=== PATIENT | female | born 1965 | race Caucasian/White ===

== ENCOUNTER 2016-12-01 14:00 | Emergency (ER) | payer OTHER ==
[~2016-12-01] VITALS: Ht 160 cm; Wt 84.6 kg
[~2016-12-01 14:00] MED LIST: LEXA10TA PO
[2016-12-01 14:35] VITALS: BP 156/96; PULSE 88; RESP 16; TEMP 99.5; O2SAT 99
[2016-12-01] MEDS ORDERED: SODIUM CHLOR 0.9% 1000 ML INJ 1,000 ML IV SCH (15:36)
--- NOTE | 2016-12-01 15:42 | PD ---
HPI Chief Complaint: Abdominal Pain Time Seen by Provider: 15:31 Travel History International Travel<30 days: No Contact w/Intl Traveler<30days: No Traveled to known affect area: No History of Present Illness HPI 50-year-old female complains of abdominal pain with nausea vomiting diarrhea. Patient states the symptoms started last night. Patient has fever, coughing congestion body ache for the past 5 days. Patient states that the abdominal pain started last night. Patient denies any earache sore throat. Patient states that the cough is mild dry cough. Patient denies any chest pain or shortness of breath. Patient states that the abdominal pain is sharp intermittent pain mostly localized around the right mid to right low quadrant of the abdomen. Patient denies any pain radiation. On a scale of 1-10 the pain is an 8. PFSH Past Medical History Depression: Yes Cardiovascular Problems: Yes (BORDERLINE) Diminished Hearing: No ?: Not LMP: pre-menapause Past Surgical History Eye Surgery: Yes (left eye as a child) Tonsillectomy: Yes Other Surgery: Yes (right knee) Social History Alcohol Use: Yes (SOCIALLY- wine) Tobacco Use: No (quit 10 yrs ago smoked cigs) Substance Use: No Allergies-Medications (Allergen,Severity, Reaction): Coded Allergies: Contrast Media (Verified Allergy, Severe, ANAPHYLAXIS, 04/11/15) Reported Meds & Prescriptions Reported Meds & Active Scripts Active Reported Lexapro (Escitalopram Oxalate) 10 Mg Tab 10 Mg PO DAILY Review of Systems General / Constitutional: No: Fever Eyes: No: Visual changes HENT: No: Headaches Cardiovascular: No: Chest Pain or Discomfort Respiratory: No: Shortness of Breath Gastrointestinal: Positive: Nausea, Vomiting, Diarrhea, Abdominal Pain Genitourinary: No: Dysuria Musculoskeletal: No: Pain Skin: No Rash Neurologic: No: Weakness Psychiatric: No: Depression Endocrine: No: Polydipsia Hematologic/Lymphatic: No: Easy Bruising Physical Exam Narrative GENERAL: Well-nourished, well-developed patient. SKIN: Warm and dry. HEAD: Normocephalic. EYES: No scleral icterus. No injection or drainage. NECK: Supple, trachea midline. No JVD or lymphadenopathy. CARDIOVASCULAR: Regular rate and rhythm without murmurs, gallops, or rubs. RESPIRATORY: Breath sounds equal bilaterally. No accessory muscle use. GASTROINTESTINAL: Abdomen soft, nondistended. Patient has mild tenderness on palpation right mid to low quadrant of the abdomen. No rebound tenderness. No mass. MUSCULOSKELETAL: No cyanosis, or edema. BACK: Nontender without obvious deformity. No CVA tenderness. Neurologic exam normal. Data Data Last Documented VS Vital Signs Date Time Temp Pulse Resp B/P Pulse Ox O2 Delivery O2 Flow Rate FiO2 12/01/16 14:35 99.5 88 16 156/96 99 Orders Complete Blood Count With Diff (12/01/16 15:36) Comprehensive Metabolic Panel (12/01/16 15:36) Lipase (12/01/16 15:36) Prothrombin Time / Inr (Pt) (12/01/16 15:36) Act Partial Throm Time (Ptt) (12/01/16 15:36) Urinalysis - C+S If Indicated (12/01/16 15:36) Ct Abd/Pel W/O Iv Contrast (12/01/16 15:36) Iv Access Insert/Monitor (12/01/16 15:36) Ecg Monitoring (12/01/16 15:36) Oximetry (12/01/16 15:36) Morphine Inj (Morphine Inj) (12/01/16 15:45) Ondansetron Inj (Zofran Inj) (12/01/16 15:45) Pantoprazole Inj (Protonix Inj) (12/01/16 15:45) Sodium Chlor 0.9% 1000 Ml Inj (Ns 1000 M (12/01/16 15:36) MDM Medical Decision Making Medical Screen Exam Complete: Yes Emergency Medical Condition: Yes Differential Diagnosis Differential diagnosis including gastritis, PUD, pancreatitis, cholecystitis, colitis, UTI, pyelonephritis, nephrolithiasis, appendicitis, ovarian cyst, ovarian torsion. Narrative Course 50-year-old female with right mid to right low quadrant abdominal pain. Patient also has nausea vomiting diarrhea. Normal saline solution 1 25 cc an hour. Morphine 2 mg IV. Zofran 4 mg IV. Glenroy Walters MD Dec 01, 2016 15:42
[2016-12-01] MEDS ORDERED: ONDANSETRON HCL 4 MG/2 ML VIAL IVP ONE (15:45)
[2016-12-01] MEDS ORDERED: PANTOPRAZOLE SODIUM 40 MG VIAL IVP ONE (15:45)
[2016-12-01] MEDS ORDERED: MORPHINE SULFATE 4 MG/ML INJ IV PUSH ONE (15:45)
[2016-12-01] MEDS ORDERED: LEXA10TA PO (16:05)
[2016-12-01 16:08] LABS: AUTOMATED NEUTROPHIL # 2.5 TH/MM3 (1.8-7.7); BASOPHIL % 0.9 % (0.0-2.0); EOSINOPHIL % 0.4 % (0.0-4.0); HEMO FLAGS DIFF FINAL; LYMPH % 30.2 % (9.0-44.0); LYMPHOCYTE # 1.3 TH/MM3 (1.0-4.8); MEAN CELL VOLUME 88.1 FL (80.0-100.0); MEAN CORPUSCULAR HEMOGLOBIN 28.9 PG (27.0-34.0); MEAN CORPUSCULAR HGB CONC 32.8 % (32.0-36.0); MONO % 8.4 % (0.0-8.0); NEUT % 60.1 % (16.0-70.0); PLATELET COUNT 227 TH/MM3 (150-450); RED CELL DISTRIBUTION WIDTH 12.4 % (11.6-17.2); WHITE BLOOD COUNT 4.1 TH/MM3 (4.0-11.0)
[2016-12-01 16:10] LABS: BLOOD, URINE NEG (NEG); GLUCOSE,URINE NEG (NEG); KETONE, URINE TRACE mg/dL (NEG); NITRITE,URINE NEG (NEG)
[2016-12-01 16:16] LABS: CHLORIDE 105 MEQ/L (98-107); POTASSIUM 3.8 MEQ/L (3.5-5.1); SODIUM (NA) 142 MEQ/L (136-145)
[2016-12-01 16:20] LABS: ANION GAP 8 MEQ/L (5-15); BICARBONATE 28.6 MEQ/L (21.0-32.0); BLOOD UREA NITROGEN 10 MG/DL (7-18); PROTHROMBIN TIME - PATIENT 10.7 SEC (9.8-11.6)
[2016-12-01 16:22] LABS: ALT (GPT) 41 U/L (10-53); AST (GOT) 31 U/L (15-37)
[2016-12-01 16:23] LABS: GLOMERULAR FILTRATION RATE 59 ML/MIN (>89)
[2016-12-01 16:24] LABS: TOTAL BILIRUBIN ADULT 0.3 MG/DL (0.2-1.0)
[2016-12-01 16:25] LABS: ALKALINE PHOSPHATASE 87 U/L (45-117)
[2016-12-01 16:28] LABS: COMMENT (UR) CULT NOT INDICATED; CULTURE IF INDICATED CULT NOT INDICATED; RBC, URINE 0-2 /hpf (0-3); SQUAMOUS EPITHELIAL CELL URINE 0-5 /hpf (0-5); URINE COLOR STRAW (YELLW/STRAW); WBC, URINE 0-2 /hpf (0-5)
--- NOTE | 2016-12-01 16:29 | PD ---
Physical Exam Date Seen by Provider: Dec 01, 2016 Time Seen by Provider: 16:27 Narrative The patient is a 50-year-old female was initially evaluated by Dr. Walters. Please refer to the initial history, physical, diagnostic evaluation, treatment modality plan. The patient signed out at [address] of the abdomen and pelvis pending. According to Dr. Walters the patient was experienced nausea, vomiting, diarrhea, right lower quadrant abdominal pain. Data Data Last Documented VS Vital Signs Date Time Temp Pulse Resp B/P Pulse Ox O2 Delivery O2 Flow Rate FiO2 12/01/16 14:35 99.5 88 16 156/96 99 Orders Complete Blood Count With Diff (12/01/16 15:36) Comprehensive Metabolic Panel (12/01/16 15:36) Lipase (12/01/16 15:36) Prothrombin Time / Inr (Pt) (12/01/16 15:36) Act Partial Throm Time (Ptt) (12/01/16 15:36) Urinalysis - C+S If Indicated (12/01/16 15:36) Ct Abd/Pel W/O Iv Contrast (12/01/16 15:36) Iv Access Insert/Monitor (12/01/16 15:36) Ecg Monitoring (12/01/16 15:36) Oximetry (12/01/16 15:36) Morphine Inj (Morphine Inj) (12/01/16 15:45) Ondansetron Inj (Zofran Inj) (12/01/16 15:45) Pantoprazole Inj (Protonix Inj) (12/01/16 15:45) Sodium Chlor 0.9% 1000 Ml Inj (Ns 1000 M (12/01/16 15:36) Labs Laboratory Tests Test 12/01/16 16:00 White Blood Count 4.1 TH/MM3 Red Blood Count 5.10 MIL/MM3 Hemoglobin 14.7 GM/DL Hematocrit 45.0 % Mean Corpuscular Volume 88.1 FL Mean Corpuscular Hemoglobin 28.9 PG Mean Corpuscular Hemoglobin 32.8 % Concent Red Cell Distribution Width 12.4 % Platelet Count 227 TH/MM3 Mean Platelet Volume 7.6 FL Neutrophils (%) (Auto) 60.1 % Lymphocytes (%) (Auto) 30.2 % Monocytes (%) (Auto) 8.4 % Eosinophils (%) (Auto) 0.4 % Basophils (%) (Auto) 0.9 % Neutrophils # (Auto) 2.5 TH/MM3 Lymphocytes # (Auto) 1.3 TH/MM3 Monocytes # (Auto) 0.3 TH/MM3 Eosinophils # (Auto) 0.0 TH/MM3 Basophils # (Auto) 0.0 TH/MM3 CBC Comment DIFF FINAL Differential Comment Prothrombin Time 10.7 SEC Prothromb Time International 1.0 RATIO Ratio Activated Partial 27.0 SEC Thromboplast Time Urine Color STRAW Urine Turbidity CLEAR Urine pH 6.0 Urine Specific Waterproof 1.024 Urine Protein TRACE mg/dL Urine Glucose (UA) NEG mg/dL Urine Ketones TRACE mg/dL Urine Occult Blood NEG Urine Nitrite NEG Urine Bilirubin NEG Urine Leukocyte Esterase NEG Urine RBC 0-2 /hpf Urine WBC 0-2 /hpf Urine Squamous Epithelial 0-5 /hpf Cells Urine Bacteria NONE /hpf Microscopic Urinalysis Comment CULT NOT INDICATED Sodium Level 142 MEQ/L Potassium Level 3.8 MEQ/L Chloride Level 105 MEQ/L Carbon Dioxide Level 28.6 MEQ/L Anion Gap 8 MEQ/L Blood Urea Nitrogen 10 MG/DL Creatinine 1.00 MG/DL Estimat Glomerular Filtration 59 ML/MIN Rate Random Glucose 103 MG/DL Calcium Level 8.2 MG/DL Total Bilirubin 0.3 MG/DL Aspartate Amino Transf 31 U/L (AST/SGOT) Alanine Aminotransferase 41 U/L (ALT/SGPT) Alkaline Phosphatase 87 U/L Total Protein 7.5 GM/DL Albumin 3.7 GM/DL Lipase 106 U/L [facility] Medical Record Reviewed: Yes Supervised Visit with PENNIE: No Interpretation(s) Last Impressions Abdomen/Pelvis CT 12/01/16 1536 Signed Impressions: Service Date/Time: Thursday, December 01, 2016 16:03 - CONCLUSION: 1. Nonobstructing 3 mm stone in the midpole collecting system of the right kidney. 2. Diverticular disease of the descending and sigmoid colon without diverticulitis. 3. Normal appendix. No acute intraperitoneal or pelvic process to explain current clinical symptoms. Adelso Dawkins MD Laboratory Tests Test 12/01/16 16:00 White Blood Count 4.1 TH/MM3 Red Blood Count 5.10 MIL/MM3 Hemoglobin 14.7 GM/DL Hematocrit 45.0 % Mean Corpuscular Volume 88.1 FL Mean Corpuscular Hemoglobin 28.9 PG Mean Corpuscular Hemoglobin 32.8 % Concent Red Cell Distribution Width 12.4 % Platelet Count 227 TH/MM3 Mean Platelet Volume 7.6 FL Neutrophils (%) (Auto) 60.1 % Lymphocytes (%) (Auto) 30.2 % Monocytes (%) (Auto) 8.4 % Eosinophils (%) (Auto) 0.4 % Basophils (%) (Auto) 0.9 % Neutrophils # (Auto) 2.5 TH/MM3 Lymphocytes # (Auto) 1.3 TH/MM3 Monocytes # (Auto) 0.3 TH/MM3 Eosinophils # (Auto) 0.0 TH/MM3 Basophils # (Auto) 0.0 TH/MM3 CBC Comment DIFF FINAL Differential Comment Prothrombin Time 10.7 SEC Prothromb Time International 1.0 RATIO Ratio Activated Partial 27.0 SEC Thromboplast Time Sodium Level 142 MEQ/L Potassium Level 3.8 MEQ/L Chloride Level 105 MEQ/L Carbon Dioxide Level 28.6 MEQ/L Anion Gap 8 MEQ/L Blood Urea Nitrogen 10 MG/DL Creatinine 1.00 MG/DL Estimat Glomerular Filtration 59 ML/MIN Rate Random Glucose 103 MG/DL Calcium Level 8.2 MG/DL Total Bilirubin 0.3 MG/DL Aspartate Amino Transf 31 U/L (AST/SGOT) Alanine Aminotransferase 41 U/L (ALT/SGPT) Alkaline Phosphatase 87 U/L Total Protein 7.5 GM/DL Albumin 3.7 GM/DL Lipase 106 U/L Differential Diagnosis Differential diagnosis includes gastroenteritis, colitis, enteritis, atypical appendicitis, pyelonephritis, viral syndrome. Narrative Course Patient was initially evaluated by Dr. Dr. Walters, please refer to the initial history, physical, diagnostic evaluation, and treatment modality plan. The patient was signed out of [address] of the abdomen and pelvis pending. The patient's white count is unremarkable, LFTs and lipase are normal. UA reveals trace ketones, otherwise unremarkable. CT reveals no acute pathology, does reveal kidney stone within the right kidney as well as diverticular disease without any diverticulitis. The patient was reassessed at 5:05 PM, her symptoms had improved. The patient will be discharged home on Bentyl and Zofran , is advised to have a clear liquid diet and advance as tolerated. The patient will be provided a copy of her labs and CT results at discharge. The patient is advised to follow-up with her primary physician. Diagnosis Primary Impression: Gastroenteritis Patient Instructions: General Instructions Additional Instruction: Please provide the patient a copy of her CT results and lab results at discharge. Bentyl and Zofran as directed. Clear liquid diet and advance as tolerated. Work excuse for 2 days. Return if symptoms worsen or progress. Med/Other Pt SpecificInfo: Prescription(s) given Scripts Dicyclomine (Bentyl)20 Mg Tab20 Mg PO QID #15 TAB Ref 0 Prov:Geronimo Loya MD 12/01/16 Ondansetron Odt (Zofran Odt)4 Mg Tab4 Mg SL Q6HR PRN (Nausea/Vomiting) #7 TAB Ref 0 Prov:Geronimo Loya MD 12/01/16 Disposition: 01 DISCHARGE HOME Condition: Stable Geronimo Loya MD Dec 01, 2016 16:29
--- NOTE | 2016-12-01 16:39 | RADHPO ---
EXAM DATE/TIME: 12/01/2016 16:03 [facility] COMPARISON: CT ABDOMEN & PELVIS W/O CONTRAST, April 11, 2015, 14:35. INDICATIONS : Abdomen pain lower right side. vomiting ORAL CONTRAST: No oral contrast ingested. RADIATION DOSE: 16.66 CTDIvol (mGy) MEDICAL HISTORY : None SURGICAL HISTORY : None. ENCOUNTER: Initial ACUITY: 1 day PAIN SCALE: 4/10 LOCATION: abdomen TECHNIQUE: Volumetric scanning of the abdomen and pelvis was performed. Using automated exposure control and ad justment of the mA and/or kV according to patient size, radiation dose was kept as low as reasonably achievable to obtain optimal diagnostic quality images. FINDINGS: LOWER LUNGS: The visualized lower lungs are clear. LIVER: Homogeneous density without lesion. There is no dilation of the biliary tree. No calcified gallston es. SPLEEN: Normal size without lesion. PANCREAS: Within normal limits. KIDNEYS: Normal in size and shape. Nonobstructing, 3 mm calculus in the midpole collecting system of the right kidney. ADRENAL GLANDS: Within normal limits. VASCULAR: There is no aortic aneurysm. BOWEL/MESENTERY: Significant diverticular disease of the sigmoid and, to a lesser degree the descending colon without diverticulitis. The vermiform appendix is identified and is radiographically normal. ABDOMINAL WALL: Within normal limits. RETROPERITONEUM: There is no lymphadenopathy. BLADDER: No wall thickening or mass. REPRODUCTIVE: Within normal limits. INGUINAL: There is no lymphadenopathy or hernia. MUSCULOSKELETAL: Within normal limits for patient age. CONCLUSION: 1. Nonobstructing 3 mm stone in the midpole collecting system of the right kidney. 2. Diverticular disease of the descending and sigmoid colon without diverticulitis. 3. Normal appendix. No acute intraperitoneal or pelvic process to explain current clinical symptoms. Adelso Dawkins MD on December 01, 2016 at 16:29 Board Certified Radiologist. This report was verified electronically.
[2016-12-01] MEDS ORDERED: BENT20TA PO (17:09)
[2016-12-01] MEDS ORDERED: ZOFR4TAB3 SL (17:09)
[2016-12-01 17:51] VITALS: BP 146/88
[2016-12-01 17:52] VITALS: O2SAT 97
== END 2016-12-01 17:56 | disposition home or self-care (01) ==
LOC: PHED 14:00
DX: K52.9 Noninfective gastroenteritis and colitis, unspecified (principal); R50.9 Fever, unspecified; R05 Cough; M79.1 Myalgia; N20.0 Calculus of kidney; K57.90 Diverticulosis of intestine, part unspecified, without perforation or abscess without bleeding; Z86.59 Personal history of other mental and behavioral disorders; Z86.79 Personal history of other diseases of the circulatory system; Z87.891 Personal history of nicotine dependence
CPT/HCPCS: 74176; 80053; 81001; 83690; 85025; 85610; 85730; 96361; 96374; 96375; 99284; C9113; J2270; J2405; J7030